=== PATIENT | female | born 1970 | race African-American/Black ===

== ENCOUNTER 2016-08-15 10:25 | Emergency (ER) | payer MEDICARE, MEDICAID ==
[~2016-08-15] VITALS: Ht 167.6 cm; Wt 79.0 kg
[2016-08-15] MEDS ORDERED: KETOROLAC 30MG/ML VIAL IV STA (12:04)
[2016-08-15] MEDS ORDERED: SODIUM CHLORIDE 0.9% 1,000 ML IV ONE (12:04)
[2016-08-15 12:26] LABS: KETONES URINE NEGATIVE (NEGATIVE); LEUKOCYTE ESTERASE URINE 1+ (NEGATIVE); NITRITE URINE NEGATIVE (NEGATIVE); OCCULT BLOOD URINE 3+ (NEGATIVE); PH URINE 6.5 (4.5-8.0); PROTEIN URINE 1+ (NEGATIVE); SPECIFIC GRAVITY URINE 1.011 (1.005-1.030); UROBILINOGEN URINE 0.2 E.U./dL (0.2-1.0)
[2016-08-15 12:28] LABS: CLARITY URINE CLOUDY (CLEAR); COLOR URINE BLOODY (YELLOW)
[2016-08-15 12:38] LABS: BASOPHILS % 0.5 % (0.0-2.0); EOSINOPHILS % 4.2 % (0.0-5.0); HEMATOCRIT. 37.6 % (36.0-48.0); HEMOGLOBIN. 12.5 g/dL (12.0-16.0); LYMPHOCYTES % 33.2 % (20.0-50.0); MEAN CORPUSCULAR HEMOGLOBIN 31.6 pg (28.0-32.0); MEAN CORPUSCULAR VOLUME 94.7 fL (81.0-99.0); MEAN PLATELET VOLUME 8.2 fl (7.4-10.4); NEUTROPHILS % 53.1 % (40.0-76.0); PLATELET 368 x1000/uL (130-400); RED BLOOD CELL COUNT 3.97 mill/uL (4.2-5.4); RED CELL DISTRIBUTION WIDTH 13.6 % (11.6-14.6)
[2016-08-15 12:42] LABS: CHLORIDE 105 mEq/L (98-107)
[2016-08-15 12:46] LABS: CARBON DIOXIDE 29 mEq/L (21-32)
[2016-08-15 14:02] VITALS: BP 142/86
== END 2016-08-15 15:01 | disposition home or self-care (01) ==
LOC: ER 12:15
DX: R10.9 Unspecified abdominal pain (principal); R31.0 Gross hematuria; R03.0 Elevated blood-pressure reading, without diagnosis of hypertension; F79 Unspecified intellectual disabilities
CPT/HCPCS: 36415; 80053; 81001; 81025; 83690; 85025; 85610; 96361; 96374; 99284; C1893; J1885; J7030

== ENCOUNTER 2017-03-22 17:24 | Emergency (ER) | payer MEDICARE, MEDICAID ==
[~2017-03-22] VITALS: Ht 167.6 cm; Wt 80.0 kg
[2017-03-22 21:08] VITALS: BP 104/59
== END 2017-03-22 21:34 | disposition home or self-care (01) ==
LOC: ER 17:24
DX: L97.829 Non-pressure chronic ulcer of other part of left lower leg with unspecified severity (principal); L03.116 Cellulitis of left lower limb; F79 Unspecified intellectual disabilities; Z87.440 Personal history of urinary (tract) infections; Z98.890 Other specified postprocedural states
CPT/HCPCS: 99282